=== PATIENT | female | born 1970 | race Caucasian/White ===

== ENCOUNTER 2016-12-13 08:29 | Inpatient (IN) ==
[2016-12-13 08:58] LABS: MANUAL DIFF NEEDED? NO
[2016-12-13 09:00] LABS: BASO% 0.2 % (0.0-0.8); EOS% 1.1 % (0.0-10.0); HEMATOCRIT 44.1 % (37.0-47.0); HEMOGLOBIN 15.3 g/dL (12.0-16.0); IMM GRAN# 0.05 X1000 (0.0-0.04); IMM GRAN% 0.3 % (0.0-0.5); LYMPH# 2.67 X1000 (1.2-3.4); LYMPH% 14.9 % (20.5-51.1); MCH 30.7 PG (27-31); MCHC 34.7 g/dL (33-37); MCV 88.6 FL (81-99); MONO# 1.03 X1000 (0.11-0.59); MONO% 5.7 % (1.7-9.3); MPV 10.5 FL (7.4-10.4); NEUT% 77.8 % (42.2-75.2); PLT 275 X1000 (130-400); RBC 4.98 XMIL (4.2-5.4)
[2016-12-13 09:16] LABS: AGAP 10; BUN 18 mg/dL (8-22); CHLORIDE 108 mmol/L (98-107); POTASSIUM 4.3 mmol/L (3.5-5.1); SODIUM 137 mmol/L (136-145); TCO2 20 mmol/L (25-35)
[2016-12-13 09:17] LABS: ALBUMIN 3.5 g/dL (3.5-5.0); ALKALINE PHOSPHATASE 51 U/L (32-104); COSMO 277; GOT 15 U/L (10-30); GPT 13 U/L (10-36); TOTAL PROTEIN 6.3 g/dL (6.3-8.3)
[2016-12-13 09:21] LABS: INR 0.9 (0.86-1.15); PROTIME 12.5 Seconds (12.1-15.5)
[2016-12-13 09:22] LABS: PTT PL 31.8 Seconds (22.6-43.9)
[2016-12-13 10:13] LABS: OCCULT BLOOD 1 POSITIVE (NEGATIVE)
[2016-12-13] MEDS ORDERED: DEMEROL IV ONE (10:23)
[2016-12-13] MEDS ORDERED: PHENERGAN IV ONE (10:23)
[2016-12-13] MEDS ORDERED: SODIUM CHLORIDE 0.9% INJ ONE (10:23)
[2016-12-13 11:12] LABS: URINE CULTURE PL NEEDED? NO
[2016-12-13 11:18] LABS: BILIRUBIN URINE NEGATIVE (NEGATIVE); BLOOD URINE 1+ (NEGATIVE); CLARITY CLEAR (CLEAR); COLOR YELLOW; GLUCOSE URINE NEGATIVE (NEGATIVE); LEUKOCYTES URINE NEGATIVE (NEGATIVE); NITRITE URINE NEGATIVE (NEGATIVE); PH URINE 6.5; PROTEIN URINE TRACE mg/dL (NEGATIVE); SP GRAVITY URINE 1.015; UROBILINOGEN URINE NORMAL
[2016-12-13 11:19] LABS: URINE EPITHELIAL CELLS >10 /HPF (<10); URINE RBC <10 /HPF (<10); URINE SOURCE CLEAN CATCH; URINE WBC <10 /HPF (<10)
--- NOTE | 2016-12-13 12:32 | Diag Imaging Result Doc PS360 ---
ABDOMEN/PELVIS W/CONTRAST - 12/13/2016 INDICATION: abd pain/rectal bleeding TECHNIQUE: A CT dose reduction protocol was used. COMPARISON: None FINDINGS: There is a granuloma in the right lower lobe. Otherwise the lung bases are clear and the heart size is normal. The liver, gallbladder, spleen, pancreas, adrenals, and kidneys are normal. There is wall thickening of the transverse and ascending colon particularly involving the splenic flexure. No free air or free fluid. No bowel obstruction. There are numerous diverticula of the descending and sigmoid colon. These are noninflamed. There is a small right ovarian cyst measuring 2.6 cm. Urinary bladder, uterus, and rectum are normal. Bones are intact. IMPRESSION: 1. Focal colitis of the splenic flexure of the colon. There are some diverticula of the descending and sigmoid colon but these appear noninflamed. 2. Small, simple appearing right ovarian cyst. Electronically signed by Urbano Grissom 12/13/2016 12:29 PM
[2016-12-13] MEDS ORDERED: LEVAQUIN 500 MG/D5W 500 MG/100 ML IVPB IV ONE (12:48)
[2016-12-13] MEDS ORDERED: ZOFRAN IV PRN (12:48)
[2016-12-13] MEDS ORDERED: FLAGYL 500 MG/NS 500 MG/100 ML IVPB IV SCH (13:00)
[2016-12-13] MEDS ORDERED: PROTONIX IV SCH (13:30)
[2016-12-13] MEDS ORDERED: SODIUM CHLORIDE 0.9% INJ SCH (13:30)
[2016-12-13] MEDS: DEMEROL IV PRN ×3 (14:33→20:52)
[2016-12-13] MEDS: NS 1,000 ML IV SCH (14:34)
[2016-12-13] MEDS: NICODERM PATCH TD SCH (16:43)
[2016-12-13] MEDS ORDERED: LEVAQUIN 500 MG/D5W 500 MG/100 ML IVPB IV SCH (18:00)
--- NOTE | 2016-12-13 19:05 | HISTORY AND PHYSICAL ---
PRIMARY CARE PHYSICIAN: None. CHIEF COMPLAIN: Rectal bleeding, left lower quadrant abdominal pain and diarrhea this a.m. HISTORY OF PRESENTING ILLNESS: This is a 46-year-old female who presents to [facility] with complaints of left lower quadrant abdominal pain, diarrhea and rectal bleeding that began last night around 9 p.m. and progressively worsened through this morning. When she arrived to the emergency room she was noted to have a white blood cell count of 17.92 with a stable hematocrit and hemoglobin of 44.1 and 15.3. A stool for occult blood was positive. She had a CT of the abdomen and pelvis that showed an impression of a focal colitis of the splenic flexure of the colon and some diverticulum in the descending and sigmoid colon but those appeared not to be inflamed so she was admitted for further evaluation and treatment. PAST MEDICAL HISTORY: Of a melanoma. PAST SURGICAL HISTORY: , breast surgery and melanoma removed. FAMILY HISTORY: Noncontributory. SOCIAL HISTORY: She currently lives with family. Smokes a half a pack to a pack of cigarettes a day for the past 30 years and denied any alcohol or illicit drug use. ALLERGIES: Morphine and penicillin. HOME MEDICATIONS: Will have to obtain a current list and restart those as appropriate. LABORATORY DATA: Showed a white blood cell count of 17.92, hemoglobin 15.3, hematocrit 44.1, platelets 275,000. PT and INR of 12.5 and 0.90. Sodium 137, potassium 4.3, chloride 108, CO2 20, BUN of 18, creatinine 0.8, glucose 113. Urinalysis was negative. Stool for occult blood was positive. CT of the abdomen and pelvis showed a focal colitis of the splenic flexure of the colon with some diverticulum in the descending and sigmoid colon but those appear to be noninflamed. REVIEW OF SYSTEMS: She denied any fever, chills, blurred vision, dizziness, chest pain, coughing, shortness of breath. She is positive for left lower quadrant abdominal pain, diarrhea, rectal bleeding, nausea. Denied any vomiting. She is also positive for some constipation which is a chronic problem for her. She denied any burning or hurting with urination. PHYSICAL EXAMINATION: VITAL SIGNS: On arrival showed a temperature of 97.2 degrees, pulse 85, respirations 20, blood pressure 162/94, saturating 97% on room air. GENERAL: This is a 46-year-old female who is lying in the bed and answers questions appropriately. HEENT: Normocephalic and atraumatic. Pupils are equal, round, reactive to light. Extraocular movements are intact. Oropharynx and nares are clear. NECK: Supple. LUNGS: Clear to auscultation bilaterally with equal lung expansion and chest wall movement. HEART: With regular rate and rhythm. No murmurs, rubs, or gallops. ABDOMEN: Abdomen is soft. There is some tenderness to the left lower quadrant. Bowel sounds are present x4 quadrants. EXTREMITIES: No clubbing, cyanosis, or edema. NEUROLOGICAL: The cranial nerves 2-12 are grossly intact. ASSESSMENT: 1. Colitis. 2. Leukocytosis. 3. Rectal bleeding appears to be stable with her hemoglobin and hematocrit. 4. Tobacco abuse. PLAN: She has been admitted to the medical unit at [facility], placed on telemetry, clear liquid diet. Placed on Levaquin 500 mg IV q.24, Flagyl 500 mg IV q.8, normal saline at 75 mL an hour, Demerol 25 mg IV q.3 hours p.r.n., Zofran 4 mg IV q.4 hours p.r.n., Protonix 40 mg IV q.24. Will recheck a CBC, CMP, magnesium and TSH level in the a.m. Dictated by KISHAN Whitehead for Hardy Cordero MD cc: KISHAN Whitehead MD
[2016-12-13] MEDS: FLAGYL 500 MG/NS 500 MG/100 ML IVPB IV SCH (21:53)
[2016-12-14] MEDS: DEMEROL IV PRN ×2 (00:07→05:47)
[2016-12-14] MEDS: FLAGYL 500 MG/NS 500 MG/100 ML IVPB IV SCH (05:39)
[2016-12-14] MEDS: NS 1,000 ML IV SCH (05:47)
[2016-12-14 05:53] LABS: HEMATOCRIT 40.1 % (37.0-47.0); HEMOGLOBIN 13.4 g/dL (12.0-16.0); MCH 30.3 PG (27-31); MCHC 33.4 g/dL (33-37); MCV 90.7 FL (81-99); MPV 10.5 FL (7.4-10.4); RBC 4.42 XMIL (4.2-5.4)
[2016-12-14 06:21] LABS: AGAP 5; ALBUMIN 2.9 g/dL (3.5-5.0); ALKALINE PHOSPHATASE 44 U/L (32-104); BUN 10 mg/dL (8-22); CALCIUM 8.3 mg/dL (8.8-10.2); CHLORIDE 109 mmol/L (98-107); COSMO 270; GOT 13 U/L (10-30); GPT 11 U/L (10-36); MAGNESIUM 1.8 mg/dL (1.5-2.7); SODIUM 136 mmol/L (136-145); TCO2 22 mmol/L (25-35); TOTAL PROTEIN 5.2 g/dL (6.3-8.3)
[2016-12-14] MEDS ORDERED: TYLENOL PO PRN (08:28)
[2016-12-14 08:46] VITALS: BP 103/57
[2016-12-14] MEDS: NICODERM PATCH TD SCH (08:58)
[2016-12-14] MEDS ORDERED: PERCOCET-5 PO ONE (12:40)
[2016-12-14] MEDS ORDERED: LEVAQUIN 500 MG/D5W 500 MG/100 ML IVPB IV SCH (13:00)
[2016-12-14] MEDS ORDERED: FLAGYL PO SCH (14:00)
[2016-12-14] MEDS ORDERED: LEVAQUIN PO SCH (17:00)
--- NOTE | 2016-12-15 13:41 | DISCHARGE SUMMARY ---
ADMISSION DATE: 12/13/2016 DISCHARGE DATE: 12/14/2016 DATE OF ADMISSION: 12/13/2016. DATE OF DISCHARGE: 12/14/2016. DIAGNOSES: 1. Colitis. 2. Leukocytosis. 3. Rectal bleeding, appears to be stable with hemoglobin and hematocrit. 4. Tobacco abuse. DIAGNOSTICS: 12/13/2016 CT of the abdomen and pelvis: Revealed: 1. Focal colitis of the splenic flexure of the colon. There is some diverticula of the descending and sigmoid colon, but these appeared noninflamed. 2. Small simple appearing right ovarian HOSPITAL COURSE: Ms. Kim presented to the emergency room complaining of left lower quadrant pain, diarrhea, and some rectal bleeding. This started about 9 p.m. prior to coming to the hospital. It did worsen through the next morning. She did have a white count of 17. She was found with a stool occult the was positive. A CT showed focal colitis of the splenic flexure of the colon. She was admitted. Given IV hydration as well as Flagyl and Levaquin. This has been transitioned over to p.o. and she has had no further diarrhea since admission. She has had no vomiting. She is tolerating p.o. antibiotics as well as a p.o. GI soft diet with no abdominal pain, nausea, or vomiting. PHYSICAL EXAMINATION: Cardiovascular: Regular rate and rhythm. S1 and S2 are appreciated. Pulmonary: Breath sounds are clear with no increased work of breathing noted. Gastrointestinal: Abdomen is soft, nontender, nondistended with bowel sounds in all 4 quadrants. Extremities: No clubbing, cyanosis, or edema. Calves are nontender and pulses are palpable x4. Neurologic: She is alert and oriented x3 with cranial nerves 2-12 grossly intact. DISCHARGE MEDICATIONS: 1. Levaquin 500 mg p.o. with supper x7 days. 2. Flagyl 500 mg p.o. every 8 hours x7 days. 3. Pepcid 20 mg b.i.d. 4. Neurontin 300 mg t.i.d. 5. Hydroxyzine as directed. DISCHARGE DIET: GI soft. DISCHARGE ACTIVITY: As tolerated. FOLLOWUP: 1. She needs to follow up with gastroenterology for further work up. 2. She needs to follow up her primary care physician in the next 1-2 weeks, sooner if needed. She has been instructed to return to the emergency room or call her primary care physician for increasing abdominal pain, temperature greater than 101, any black or bloody stools or vomitus or for any questions or concerns that she may have. DISPOSITION: She is being discharged home in stable condition with family members. TIME SPENT: This is a greater than 30 minute discharge. Dictated by KISHAN Michel for Hardy Cordero MD cc: KISHAN Michel MD
--- NOTE | 2016-12-16 19:19 | PROVIDER DOCUMENTATION ---
This chart was entered by Mary Howard Scribe, acting as scribe for Silvestre Howard MD. HPI-Abdominal Pain/GI Problem - General Chief Complaint: Rectal Bleeding Stated Complaint: RECTAL BLEEDING Time Seen by Provider: 12/13/16 10:00 Source: patient Allergies/Adverse Reactions: Patient Allergies Allergy/AdvReac Type Severity Reaction Status Date / Time morphine Allergy ITCHING Verified 12/01/14 23:15 Penicillins Allergy Unknown Verified 07/05/16 15:30 Home Medications: Home Medication List Medication Instructions Recorded Confirmed Last Taken Type Gabapentin [Neurontin] 300 mg PO TID 07/05/16 07/05/16 Unknown History Famotidine [Pepcid] 20 mg PO BID #30 tablet 09/09/16 Unknown Rx Phentermine HCl [Adipex-P] 37.5 mg PO DAILY 09/09/16 09/09/16 Unknown History Prednisone 10 mg PO BID #10 tablet 09/09/16 Unknown Rx Famotidine [Pepcid] 20 mg PO DAILY #20 tablet 09/21/16 Unknown Rx Hydroxyzine 50 mg PO TID PRN #10 tablet 09/21/16 Unknown Rx Prednisone 20 mg PO DAILY #6 tablet 09/21/16 Unknown Rx Levofloxacin [Levaquin] 500 mg PO WSUPPER #7 tablet 12/14/16 Unknown Rx Metronidazole [Flagyl] 500 mg PO Q8H #21 tablet 12/14/16 Unknown Rx - History of Present Illness-ABD Nature of Presenting Problems: 46 yo F presents to the ER with complaint of diarrhea and abdominal pain, onset last night, and noticed bright red blood in stool this morning. States she has a hx of internal hemorrhoids x9 years ago. Son and grandson had a stomach bug last week. Abdominal Pain Onset Location: reports: generalized abdomen Pain Radiation: reports: back Quality of Pain: reports: cramping Onset/Duration: reports: last night Exposure to sick contacts?: Yes Associated Symptoms: reports: diarrhea. denies: nausea, vomiting Last BM: this morning Dark Stools Present?: reports: bright red blood Rectal Bleeding: reports: blood mixed with stool # of Diarrhea Episodes: 10 Rectal Pain: reports: none Emesis Description: reports: none Review of Systems - Adult - REVIEW OF SYSTEMS - ADULT Constitutional: denies: chills, fever Eyes: reports: no symptoms reported Ears, Nose, Mouth & Throat: reports: no symptoms reported Cardiovascular: denies: chest pain, palpitations Respiratory: denies: cough, shortness of breath Gastrointestinal: reports: abdominal pain, diarrhea, rectal bleeding. denies: nausea, vomiting Genitourinary: reports: no symptoms reported Musculoskeletal: reports: no symptoms reported Integumentary: reports: no symptoms reported Neurological: reports: no symptoms reported Psychiatric: reports: no symptoms reported Endocrine: reports: no symptoms reported Hematologic/Lymphatic: reports: no symptoms reported Allergic/Immunologic: reports: no symptoms reported All Other Systems: Reviewed and Negative Past History - Adult - PAST MEDICAL HISTORY-ADULT Review of Records: reports: Nursing Assessment Review, Medications Reviewed Major Childhood Illnesses: reports: denies history Cardiovascular: reports: denies history Respiratory: reports: denies history Gastrointestinal: reports: denies history Obstetrical/Gynecological: reports: denies history Genitourinary: reports: denies history Musculoskeletal: reports: denies history Neurological: reports: denies history Psychiatric: reports: denies history Endocrine/Immune: reports: denies history Other Conditions: reports: other cancer (melanoma) - PRIOR SURGERIES/PROCEDURES Surgical/Procedure History: reports: , breast, other (melanoma removal) - IMMUNIZATION STATUS Childhood Immunizations: See Nurse Assessment Flu Vaccine: See Nurse Assessment Physical Exam-General - PHYSICAL EXAM-ADULT Initial Vital Signs Reviewed: Yes - CONSTITUTIONAL General Appearance: alert, no apparent distress - EYES Eyes: PERRL/EOMI, pink conjunctivae - HEAD, EARS, NOSE, MOUTH & THROAT HENMT: normocephalic/atraumatic, normal ENT inspection - NECK Neck: supple, normal inspection - RESPIRATORY Respiratory: no respiratory distress, no accessory muscle use - CARDIOVASCULAR Cardiovascular: normal peripheral pulses, regular rate, rhythm - GASTROINTESTINAL (ABDOMEN) Abdominal Exam: normal bowel sounds, soft. negative: guarding, rebound - GENITOURINARY Rectal Exam: normal rectal tone, other (bright red blood). negative: hemorrhoids - MUSCULOSKELETAL Back Exam: no CVA tenderness, no vertebral tenderness Extremity: normal gait, normal inspection - SKIN Integumentary: normal color, warm/dry - NEUROLOGIC Neurologic: grossly normal, no motor/sensory deficits - PSYCHIATRIC Psych/Mental Status: normal mood/affect, normal thought content, normal thought process, oriented x 3 Progress - PLAN OF CARE/RESULTS Progress/Plan/Lab Results: Vital Signs - 8 hr 12/13/16 08:35 12/13/16 08:42 Temperature 97.2 F L Pulse Rate 85 Pulse Rate [Sitting] 86 Pulse Rate [Standing] 102 H Pulse Rate [Supine] 88 Respiratory Rate 20 Blood Pressure 162/94 Blood Pressure [Sitting] 146/91 Blood Pressure [Standing] 134/78 Blood Pressure [Supine] 162/94 O2 Sat by Pulse Oximetry 97 Laboratory Results - last 24 hr 12/13/16 12/13/16 12/13/16 08:44 08:44 08:44 WBC 17.92 H RBC 4.98 Hgb 15.3 Hct 44.1 MCV 88.6 MCH 30.7 MCHC 34.7 RDW Std Deviation 13.4 Plt Count 275 MPV 10.5 H Immature Gran % (Auto) 0.3 Neut % (Auto) 77.8 H Lymph % (Auto) 14.9 L [place] % (Auto) 5.7 Eos % (Auto) 1.1 Baso % (Auto) 0.2 Immature Gran # (Auto) 0.05 H Neut # (Auto) 13.94 H Lymph # (Auto) 2.67 [place] # (Auto) 1.03 H Eos # (Auto) 0.20 Baso # (Auto) 0.03 PT 12.5 INR 0.90 APTT (Factor Assay) 31.8 Sodium 137 Potassium 4.3 Chloride 108 H Carbon Dioxide 20 L Anion Gap 10 BUN 18 Creatinine 0.8 Estimated GFR/1.73 m2 > 60 BUN/Creatinine Ratio 23 Glucose 113 H Calculated Osmolality 277 Calcium 9.0 Total Bilirubin 0.20 AST 15 ALT 13 Alkaline Phosphatase 51 Total Protein 6.3 Albumin 3.5 Globulin 3.0 Albumin/Globulin Ratio 1.0 Blood Type Antibody Screen 12/13/16 08:44 WBC RBC Hgb Hct MCV MCH MCHC RDW Std Deviation Plt Count MPV Immature Gran % (Auto) Neut % (Auto) Lymph % (Auto) [place] % (Auto) Eos % (Auto) Baso % (Auto) Immature Gran # (Auto) Neut # (Auto) Lymph # (Auto) [place] # (Auto) Eos # (Auto) Baso # (Auto) PT INR APTT (Factor Assay) Sodium Potassium Chloride Carbon Dioxide Anion Gap BUN Creatinine Estimated GFR/1.73 m2 BUN/Creatinine Ratio Glucose Calculated Osmolality Calcium Total Bilirubin AST ALT Alkaline Phosphatase Total Protein Albumin Globulin Albumin/Globulin Ratio Blood Type A POSITIVE Antibody Screen NEGATIVE Orders Category Date Time Status CBC WITH DIFF [HEME] Stat Lab 12/13/16 08:44 Completed COMPREHENSIVE METABOLIC PANEL [CHEM] Stat Lab 12/13/16 08:44 Completed OCCULT BLOOD SCREEN STOOL PL Stat Lab 12/13/16 08:34 Uncollected PROTIME WITH INR PL [COAG] Stat Lab 12/13/16 08:[address] [COAG] Stat Lab 12/13/16 08:44 Completed TYPE & SCREEN [BBK] Stat Lab 12/13/16 08:44 Completed Result Diagrams: 12/14/16 05:17 12/14/16 05:17 - CT/MRI 1 CT Study: Abdomen, Pelvis Impression: Abnormal (1. Focal colitis of the splenic flexure of the colon. There are some diverticula of the descending and sigmoid colon but these appear noninflamed. 2. Small, simple appearing right ovarian cyst. Per radiologist) - CONSULTS/PCP/HOSPITALIST Notification #1 *Consult/PCP/Hospitalist*: Dr. Cordero Time Discussed: 12:25 Consult Disposition: Admit Departure - Departure Date of Disposition Decision: 12/13/16 Time of Disposition Decision: 12:48 DIAGNOSIS: Colitis Disposition: ADMITTED INPATIENT 09 Certified Medical Emergency: Emergent Condition: Stable - Critical Care Note This patient required my direct & personal management of CC.: No This chart was documented by the indicated scribe, (Mary Howard Scribe) and accurately reflects the services I performed and decisions made by me, Silvestre Howard MD, as attested by the provider's signature.
== END 2016-12-14 15:30 | disposition home or self-care (01) ==
LOC: P.MEDSURG 08:29 → P.ED 08:29 → OBSVTOIN 12:55
PROVIDERS: ATTEND Family Medicine